=== PATIENT | male | born 1970 | race Caucasian/White ===

== ENCOUNTER → 2020-09-19 | Outpatient (CLI) | payer OTHER ==
--- NOTE | 2020-09-19 15:20 | NUR ---
Took patients SPO2 while sitting down on room air was 92%. While patient was walking he maintained above 89% SPO2. Patient was walked 415FT and still maintained about 89%. However patient did become labored during walk.
== END ==
LOC: COL.PUL 13:47
DX: R06.00 Dyspnea, unspecified (principal)

== ENCOUNTER 2020-12-05 16:59 | Outpatient (RCR) | payer OTHER | END 2021-02-03 | disposition home or self-care (01) | LOC: COL.CR | DX: Z48.812 Encounter for surgical aftercare following surgery on the circulatory system (principal); Z95.2 Presence of prosthetic heart valve ==

== ENCOUNTER 2022-03-07 14:29 | Observation (INO) | payer OTHER ==
[~2022-03-07] VITALS: Ht 172.7 cm; Wt 88.4 kg
[2022-03-07 15:12] LABS: BASO % 0.3 % (0.0-2.0); EOS # 0.1 K/mm3 (0.0-0.7); EOS % 0.4 % (0.0-4.0); GRAN # 8.4 K/mm3 (1.4-6.5); GRAN % 71.9 % (42.2-75.2); HEMATOCRIT 42.2 % (42.0-52.0); HEMOGLOBIN 14.7 g/dl (13.5-18.0); LYMPH # 2.2 K/mm3 (1.2-3.4); MEAN CELL VOLUME 92 fl (80.0-100.0); MEAN CORPUSCULAR HEMOGLOBIN 32 pg (27-31); MEAN CORPUSCULAR HGB CONC 35 g/dl (33.0-37.0); MEAN PLATELET VOLUME 9.8 fl (7.4-10.4); MONO # 0.9 K/mm3 (0.1-0.6); MONO % 7.9 % (1.7-9.3); PLATELET COUNT 210 K/mm3 (130-400); REDCELL DISTRIBUTION WIDTH-CV 12.6 % (11.5-14.5)
[2022-03-07 15:26] LABS: ALANINE AMINOTRANSFERASE 26 U/L (0-55); ALBUMIN 4.2 gm/dL (3.5-5.0); ALKALINE PHOSPHATASE 81 U/L (40-150); ANION GAP 18 mmol/L (7-16); AST,SGOT 17 U/L (5-34); BILIRUBIN,TOTAL 0.9 mg/dL (0.2-1.2); BLOOD UREA NITROGEN 23 mg/dL (8-26); CALCIUM 8.9 mg/dL (8.4-10.2); CARBON DIOXIDE 27 mmol/L (22-29); CHLORIDE 94 mmol/L (98-107); CREATININE, serum 1.45 mg/dL (0.72-1.25); GLUCOSE 156 mg/dL (70-99); POTASSIUM 3.2 mmol/L (3.5-4.5); SODIUM 139 mmol/L (136-145); TOTAL PROTEIN 7.7 gm/dL (6.2-8.1)
[2022-03-07 15:32] LABS: TROPONIN-I < 0.010 ng/mL (0.00-0.033)
[2022-03-07 18:37] LABS: MAGNESIUM 1.4 mg/dL (1.6-2.6); PHOSPHOROUS 3.5 mg/dL (2.3-4.7)
[2022-03-07 18:59] LABS: ACETAMINOPHEN < 1.0 ug/mL (10-30); ALCOHOL(ethanol),MEDICAL < 10 mg/dL (0-10); SALICYLATE < 5.0 mg/dL (15.0-30.0)
[2022-03-07] MEDS ORDERED: JARDIANCE25 PO (18:59)
[2022-03-07] MEDS ORDERED: DEMADEX 20MG20 M1 PO (19:00)
[2022-03-07] MEDS ORDERED: COZAAR 25MG25 MG/TAB PO (19:00)
[2022-03-07] MEDS ORDERED: TOPROL XL 50MG50 MG PO (19:00)
[2022-03-07] MEDS ORDERED: ALDACTONE 25MG25 M1 PO (19:00)
[2022-03-07] MEDS ORDERED: OZEMPIC0.25 MG/0. SQ (19:01)
[2022-03-07] MEDS ORDERED: K-TAB20 PO (19:01)
[2022-03-07] MEDS ORDERED: RT ADVAIR HFA 412 GM IH (19:02)
[2022-03-07] MEDS ORDERED: ASPIRIN 81M81 MG/TA2 PO (19:02)
[2022-03-07] MEDS ORDERED: MELATONIN5 M1 SL (19:02)
[2022-03-07] MEDS ORDERED: GLUCOPHAGE500 MG/TAB PO (19:02)
[2022-03-07] MEDS ORDERED: PROTONIX 40MG T40 MG PO (19:03)
[2022-03-07] MEDS ORDERED: LIPITOR 80MG80 MG PO (19:03)
[2022-03-07 19:09] LABS: COLLECTION METHOD CLEAN CATCH
[2022-03-07 19:15] LABS: PH 5 (5-8); SQUAMOUS EPITHELIAL None Seen /hpf (0-10); URINE APPEARANCE Clear (CLEAR/HAZY); URINE BACTERIA None Seen /hpf (NONE SEEN); URINE BLOOD Negative (NEGATIVE); URINE COLOR Straw (YELLOW); URINE GLUCOSE 3+ (NEGATIVE); URINE KETONE Negative (NEGATIVE); URINE NITRATE Negative (NEGATIVE); URINE PROTEIN(semi-quant) Negative (NEGATIVE); URINE RBC 0-2 /hpf (0-2); URINE UROBILINOGEN Negative (NEGATIVE)
[2022-03-07 19:29] LABS: TRICYCLIC ANTIDEPRESS URINE NEGATIVE
[2022-03-07 21:30] VITALS: BP 112/73; PULSE 72; TEMP 97.8
--- NOTE | 2022-03-08 | NUR ---
Pt brought up from ED around 2129. Alert and oriented, follows commands. Hand blister pack operator equal bilaterally. Normal function of all 4 extremities. Steady ambulation. Pt denies dizziness/lightheadedness/nausea/vomiting at this time. Pt reported pain in the facial/jaw area and requested pain medication. Prn pain medication administered per orders. Pt has multiple lacerations to the face. There is a laceration on the lip/inside of the lip that is sutured, a left cheek laceration that is sutured, and a laceration on the chin with no suture. The sites are red and scabbed, not currently bleeding. Pt also has scrapes on the knee caps bilaterally. Pt has steady gate. Pt voiding adeuquately. Pt oriented to room, educated pt to utilize call arechiga. Fall precautions in place. Pt tolerating PO. Admission intake and admission assessment completed. Med rx reviewed and completed. Allergies confirmed. COVID and infectious disease assessments completed. Medications administered per orders and education provided. quality assurance monitor final remains on. Q2 neuro assessments performed. Pt does not report any questions at this time. VS stable. On room air. Afebrile. BP stable. Bed low and locked, call arechiga within reach. No concerns at this time.
[2022-03-08 00:20] VITALS: BP 101/71; PULSE 83; TEMP 98.8
[2022-03-08 05:00] VITALS: BP 112/67; PULSE 87; TEMP 98.4
--- NOTE | 2022-03-08 06:22 | NUR ---
No adverse events overnight. Pt denies dizziness/SOB/lightheadedness. No nausea/vomiting overnight. Lacerating sites are scabbed, but clean with no bleeding. Pain medication administered x1 overnight. VS stable. Fall precautions in place. Pt tolerating PO. Ambulating steady. Bed low and locked, call arechiga within reach, no concerns at this time.
[2022-03-08 06:23] LABS: BASO % 0.2 % (0.0-2.0); EOS # 0.1 K/mm3 (0.0-0.7); EOS % 0.7 % (0.0-4.0); GRAN # 9.4 K/mm3 (1.4-6.5); GRAN % 76.7 % (42.2-75.2); HEMATOCRIT 41.3 % (42.0-52.0); HEMOGLOBIN 13.7 g/dl (13.5-18.0); LYMPH # 1.5 K/mm3 (1.2-3.4); LYMPH % 12.5 % (20.0-51.0); MEAN CELL VOLUME 95 fl (80.0-100.0); MEAN CORPUSCULAR HEMOGLOBIN 31 pg (27-31); MEAN CORPUSCULAR HGB CONC 33 g/dl (33.0-37.0); MEAN PLATELET VOLUME 9.9 fl (7.4-10.4); MONO # 1.2 K/mm3 (0.1-0.6); MONO % 9.5 % (1.7-9.3); PLATELET COUNT 181 K/mm3 (130-400); RED BLOOD COUNT 4.37 M/mm3 (4.20-5.60); REDCELL DISTRIBUTION WIDTH-CV 12.7 % (11.5-14.5)
[2022-03-08 06:41] LABS: CALCIUM 8.9 mg/dL (8.4-10.2); CREATININE, serum 0.92 mg/dL (0.72-1.25); MAGNESIUM 1.8 mg/dL (1.6-2.6); POTASSIUM 3.6 mmol/L (3.5-4.5)
[2022-03-08 07:19] VITALS: BP 100/68; PULSE 84; TEMP 98.3
--- NOTE | 2022-03-08 08:39 | NUR ---
PATIENT INDEPENDENT IN HIS ROOM. STEADY GAIT. NO WEAKNESS. COMPLAINS OF 4-5 (10) PAIN IN JAW AND LIP. PATIENT STATES HE WILL BE LEAVING TODAY. DISCHARGE OR AMA. ALERT AND ORIENTED. NEURO INTACT. FULL APPETITE. BOWELS ACTIVE, LUNGS CLEAR, BLADDER FUNCTIONING. TAKES MEDS WHOLE WITH WATER. POTASSIUM REPLACED THIS MORNING.
--- NOTE | 2022-03-08 10:52 | NUR ---
Initial visit; Refining Engineer introduced herself to patient who declined Spiritual Care.
--- NOTE | 2022-03-08 11:53 | NUR ---
PATIENT REQUESTED TO LEAVE AMA, DOCTOR SPOKE WITH PATIENT, AGREED AND GAVE PATIENT PRESCRIPTION OF AUGMENTEN. IV DISCONTINUED, TELE REMOVED. PATIENT DRESSED SELF AND WALKED WITH NURSE ESCORT TO ER DROP OFF.
== END 2022-03-08 11:54 | disposition left against medical advice (07) ==
LOC: COL.ER 14:29 → MEDICAL 18:23
PROVIDERS: Nurse Practitioner; Nurse Practitioner Family; Personal Emergency Response Attendant; ADMIT Internal Medicine
DX: R55 Syncope and collapse (principal); E87.6 Hypokalemia; E83.42 Hypomagnesemia; N18.6 End stage renal disease; E11.22 Type 2 diabetes mellitus with diabetic chronic kidney disease; E78.5 Hyperlipidemia, unspecified; I12.9 Hypertensive chronic kidney disease with stage 1 through stage 4 chronic kidney disease, or unspecified chronic kidney disease; N18.9 Chronic kidney disease, unspecified; S02.609A Fracture of mandible, unspecified, initial encounter for closed fracture
CPT/HCPCS: G0378; J3475; J7030